=== PATIENT | male | born 1975 | race Caucasian/White ===

== ENCOUNTER 2017-12-20 08:36 | Emergency (ER) | payer BC ==
[2017-12-20 08:58] VITALS: BP 166/104
--- NOTE | 2017-12-20 09:19 | UC ---
Charbel Vega Stephanie, scribed for Mane Ohara MD on 12/20/17 at 0915 . Dental HPI - HPI Summary HPI Summary: The pt is a 42 y/o M presenting to with c/o dental pain that began 12/19/17. Symptoms include R sided jaw swelling and palpitations that began today. His pain is rated as a 5 in severity. - History of Current Complaint Chief Complaint: UCDentalProblem Stated Complaint: TOOTH ACHE Time Seen by Provider: 12/20/17 08:41 Hx Obtained From: Patient Onset/Duration: Gradual Onset, Lasting Days - 1, Still Present Severity: Mild Pain Intensity: 2 Pain Scale Used: 0-10 Numeric Aggravating Factor(s): Nothing Alleviating Factor(s): Nothing - Allergies/Home Medications Allergies/Adverse Reactions: Allergies Allergy/AdvReac Type Severity Reaction Status Date / Time No Known Allergies Allergy Verified 12/20/17 08:43 PMH/Surg Hx/FS Hx/Imm Hx Endocrine History: Diabetes, Dyslipidemia Cardiovascular History: Hypertension, Other - peripheral vascular disease Other Cardiovascular History: peripheral vascular disease Other History Of: Negative For: Anticoagulant Therapy - Surgical History Surgical History: Yes Surgery Procedure, Year, and Place: bone biopsy hip, rotator cuff repair right shoulder. JSAN 2018 REMOVAL OF CALCIFIED CYST ON RIGHT KNEE ARTERY - Family History Known Family History: Positive: Hypertension, Diabetes - Social History Occupation: Employed Part-time Lives: With Family Alcohol Use: UNKNOWN Substance Use Type: Marijuana Smoking Status (MU): Heavy Every Day Tobacco Smoker Type: Cigarettes Length of Time of Smoking/Using Tobacco: 1 1.2 OOD 30+ YEARS Household Exposure Type: Cigarettes - Immunization History Most Recent Influenza Vaccination: UNKNOWN Most Recent Tetanus Shot: within the last 5 years Most Recent Pneumonia Vaccination: never Review of Systems Constitutional: Negative Skin: Negative Eyes: Negative ENT: Dental Pain, Other - R sided jaw swelling Respiratory: Negative Cardiovascular: Palpitations Gastrointestinal: Negative Genitourinary: Negative Motor: Negative Neurovascular: Negative Musculoskeletal: Negative Neurological: Negative Psychological: Negative Is Patient Immunocompromised?: No All Other Systems Reviewed And Are Negative: Yes Physical Exam - Summary Physical Exam Summary: VITAL SIGNS: Reviewed. GENERAL: Patient is a well developed and nourished M who is lying comfortable in the stretcher. Patient is not in any acute respiratory distress. HEAD AND FACE: swelling in R side of face EYES: PERRLA, EOMI x 2. EARS: Hearing grossly intact. MOUTH: Oropharynx within normal limits. NECK: Supple, trachea is midline, no adenopathy, no JVD, no carotid bruit. CHEST: Symmetric, no tenderness at palpation LUNGS: Clear to auscultation bilaterally. No wheezing or crackles. CVS: tackycardic 139 BPM, hypertensive , S1 and S2 present, no murmurs or gallops appreciated. ABDOMEN: Soft, non-tender. Bowel sounds are normal. No abdominal abnormal pulsations. EXTREMITIES: Full ROM in all major joints, no edema, no cyanosis or clubbing. NEURO: Alert and oriented x 3. No acute neurological deficits. Speech is normal and follows commands. SKIN: Dry and warm Triage Information Reviewed: Yes Vital Signs: Initial Vital Signs Temp 98.1 F 12/20/17 08:45 Pulse 160 12/20/17 08:45 Resp 16 12/20/17 08:45 BP 188/110 12/20/17 08:45 Pulse Ox 98 12/20/17 08:45 Vital Signs Reviewed: Yes Diagnostics - EKG Cardiac Rate: Tachycardia - At 08:49 Cardiac Rhythm: Sinus: Normal - Tackycardia, without ST elevations ST Segment: Normal Dental Complaint Course/Dx - Course Course Of Treatment: The pt is a 42 y/o M presenting to with c/o dental pain that began 12/19/17. Symptoms include R sided jaw swelling and palpitations that began today. His pain is rated as a 5 in severity. Patient is here c/o dental pain for the last 2 days. At arrival it shows patient has a HR 154 -160 BPM and patient is hypertensive. Patient has no CP or SOB and denies any dizziness or feeling like he is going to pass out. Patient has PMH significant of DM, HTN, dyslipidemia NM s/p stent and a leg stent. Because of his comorbidities I will discharge the patient to the ED. I recommended ambulance but patient declined. He understands risk and benefit of leaving AMA. agrees. I discussed the case with Dr. Alexander in [facility] and he ia aware patient is going to the ED. - Differential Dx/Diagnosis Differential Diagnosis/Dx: Peridontic Disease, Peritonsillar Abcess, Tonsillitis , Other - Arrythmia, Uncontrol HTN Provider Diagnoses: Arrhythmia. Poorly controlled HTN. Dental pain Discharge - Sign-Out/Discharge Documenting (check all that apply): Discharge - Discharge Plan Condition: Stable Disposition: AGAINST MEDICAL ADVICE Patient Education Materials: Heart Palpitations (ED), Toothache (ED) Referrals: Anali Prado [Primary Care Provider] - Additional Instructions: Patient is leaving AMA to the ED. Refused ambulance - Billing Disposition and Condition Condition: STABLE Disposition: AMA The documentation as recorded by the Charbel olguin Stephanie accurately reflects the service I personally performed and the decisions made by , Mane Ohara MD.
== END 2017-12-20 09:08 | disposition left against medical advice (07) ==
LOC: UCEAST 08:36
DX: K08.89 Other specified disorders of teeth and supporting structures (principal); R00.0 Tachycardia, unspecified; I10 Essential (primary) hypertension; E11.9 Type 2 diabetes mellitus without complications; Z79.4 Long term (current) use of insulin; E78.5 Hyperlipidemia, unspecified; I73.9 Peripheral vascular disease, unspecified; F17.210 Nicotine dependence, cigarettes, uncomplicated
CPT/HCPCS: 93005; 99212; G0463

== ENCOUNTER 2017-12-20 09:27 | Emergency (ER) | payer BC ==
[2017-12-20] MEDS ORDERED: NS 0.9% 1000 ML* 1,000 ML IV SCH (09:45)
--- NOTE | 2017-12-20 10:08 | RAD ---
INDICATION: Tachycardia COMPARISON: Most recent comparison chest x-ray is dated March 21, 2015 TECHNIQUE: Single AP portable view of the chest was obtained. FINDINGS: Image quality is compromised due to the relative inferiority of a portable chest x-ray. The heart and mediastinum exhibit normal size and contour. The lungs are grossly clear. There is no evidence of a large pleural effusion. Visualized bones are normal for the patient's age. IMPRESSION: No radiographic evidence for acute cardiopulmonary abnormality on this portable chest x-ray.
[2017-12-20 10:09] LABS: ABS Basophils 0.1 10^3/ul (0-0.2); ABS Eosinophils 0.1 10^3/ul (0-0.6); ABS Monocytes 1.3 10^3/ul (0-0.8); ABS Nucleated RBC 0 10^3/ul; Eosinophil % 0.6 % (0-6); Hematocrit 50 % (42-52); Hemoglobin 17.2 g/dl (14.0-18.0); Lymphocyte % 13.9 % (25-47); Mean Corpuscular HGB Conc 35 g/dl (31-36); Mean Corpuscular Hemoglobin 29 pg (27-31); Mean Corpuscular Volume 85 fL (80-94); Mean Platelet Volume 8.6 um3 (7.4-10.4); Nucleated Red Blood Cells % 0.2; Platelet Count 219 10^3/ul (150-450); Red Blood Count 5.88 10^6/ul (4.0-5.4); Red Cell Distribution Width 14 % (10.5-15); White Blood Count 14.6 10^3/ul (3.5-10.8)
[2017-12-20 10:18] LABS: INR 0.86 (0.77-1.02)
[2017-12-20 10:27] LABS: EGFR Non-African American 113.7 (>60)
[2017-12-20] MEDS ORDERED: Metoprolol Tartrate TAB* 25 MG PO ONE (11:07)
[2017-12-20] MEDS ORDERED: Aspirin EC TAB* 325 MG PO ONE (11:08)
[2017-12-20] MEDS ORDERED: Cefepime 2 GM in Dextrose(*) 2 GM/50 ML BAG IV ONE (11:14)
[2017-12-20 12:30] VITALS: BP 144/89
--- NOTE | 2017-12-20 12:31 | ED ---
Linda Vega Emily, scribed for Cintia Herring MD on 12/20/17 at 1117 . 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 The patient rates the pain 3/10 in severity. Symptoms aggravated by nothing. Symptoms alleviated by nothing. Patient reports dental pain (upper, back, right) , palpitations, and blurred vision. Patient denies fever, chills, and dizziness. Pt reports not taking his medications for approximately one month. Pt reports a history of diabetes and AL. Pt also c/o right lower molar pain with severe caries down to gums, went to for better pain control but HR was in 140's and was sent to ED - History of Current Complaint Chief Complaint: EDDysrhythmPalp Stated Complaint: DENTAL PAIN/SWELLING-SENT F/ CC Time Seen by Provider: 12/20/17 10:56 Hx Obtained From: Patient Onset/Duration: Started Hours Ago, Still Present Timing: Constant Initial Severity: Mild Current Severity: Mild Pain Intensity: 0 Pain Scale Used: 0-10 Numeric Character: Fast Aggravating Factor(s): Nothing Alleviating Factor(s): Nothing Associated Signs and Symptoms: Positive: Other: - Positive dental pain (upper, back, right), palpitations, and blurred vision. Negative fever, chills, and dizzines - Additional Pertinent History Primary Care Physician: [id number] - Allergy/Home Medications Allergies/Adverse Reactions: Allergies Allergy/AdvReac Type Severity Reaction Status Date / Time No Known Allergies Allergy Verified 12/20/17 09:36 Home Medications: Home Medications Insulin GLARGINE(*) [Lantus(*)] 28 units SUBCUT DAILY 12/20/17 [History Confirmed 12/20/17] PMH/Surg Hx/FS Hx/Imm Hx Previously Healthy: No Endocrine/Hematology History: Reports: Hx Diabetes - type 2, Other Endocrine/ Hematological Disorders Denies: Hx Anticoagulant Therapy, Hx Thyroid Disease Cardiovascular History: Reports: Hx Hypertension Denies: Hx Pacemaker/ICD Respiratory History: Denies: Hx Asthma, Hx Chronic Obstructive Pulmonary Disease (COPD) GI History: Denies: Hx Ulcer History: Denies: Hx Renal Disease Musculoskeletal History: Reports: Other Musculoskeletal History - R SHOULDER ROTATER CUFF TEAR Neurological History: Denies: Hx Dementia, Hx Seizures Psychiatric History: Denies: Hx Substance Abuse - Surgical History Surgery Procedure, Year, and Place: bone biopsy hip, rotator cuff repair right shoulder. JSAN 2018 REMOVAL OF CALCIFIED CYST ON RIGHT KNEE ARTERY - Immunization History Date of Tetanus Vaccine: 2011 Date of Influenza Vaccine: none Infectious Disease History: No Infectious Disease History: Denies: Hx Clostridium Difficile, Hx Hepatitis, Hx Human Immunodeficiency Virus (HIV), Hx of Known/Suspected MRSA, Hx Shingles, Hx Tuberculosis, Hx Known/ Suspected VRE, Hx Known/Suspected VRSA, History Other Infectious Disease, Traveled Outside the US in Last 30 Days - Family History Known Family History: Positive: Hypertension, Diabetes - Social History Occupation: Employed Full-time Lives: Alone Alcohol Use: None Substance Use Type: Reports: Marijuana Smoking Status (MU): Heavy Every Day Tobacco Smoker Type: Cigarettes Length of Time of Smoking/Using Tobacco: 1 1.2 OOD 30+ YEARS Review of Systems Negative: Fever, Chills Positive: Blurred Vision ENT: Other - Positive dental pain Positive: Palpitations, Other - Positive elevated heart rate Neurological: Other - Negative dizziness All Other Systems Reviewed And Are Negative: Yes Physical Exam - Summary Physical Exam Summary: Appearance: Well-appearing, Well-nourished Skin: Warm Eyes: Normal ENT: Normal Dental Exam: poor dentition, edentulous. Right tooth number 1 and 3 with severe dental carries associated with R mandibular swelling and moderate tenderness. Neck: Supple, nontender, no cervical lymphadenopathy Respiratory: Clear to auscultation Cardiovascular: Regular rhythm. Normal S1, S2. Tachycardic. HR of 111 Abdomen: Soft, nontender Musculoskeletal: Normal, Strength/ROM Intact Neurological: Normal, A&Ox3 Psychiatric: Normal General: No acute distress Triage Information Reviewed: Yes Vital Signs On Initial Exam: Initial Vitals Temp Pulse Resp BP Pulse Ox 98.2 F 144 16 199/95 100 12/20/17 09:34 12/20/17 09:34 12/20/17 09:34 12/20/17 09:34 12/20/17 09:34 Vital Signs Reviewed: Yes Diagnostics - Vital Signs Vital Signs Temp Pulse Resp BP Pulse Ox 12/20/17 11:02 98 12/20/17 11:00 107 164/88 96 12/20/17 10:30 123 145/88 96 12/20/17 10:00 130 166/87 97 12/20/17 09:40 136 98 12/20/17 09:39 154/88 12/20/17 09:34 98.2 F 144 16 199/95 100 - Laboratory Lab Results: Lab Results 12/20/17 12/20/17 12/20/17 Range/Units 10:00 10:00 10:00 WBC (3.5-10.8) 10^3/ul RBC (4.0-5.4) 10^6/ul Hgb (14.0-18.0) g/dl Hct (42-52) % MCV (80-94) fL MCH (27-31) pg MCHC (31-36) g/dl RDW (10.5-15) % Plt Count (150-450) 10^3/ul MPV (7.4-10.4) um3 Neut % (Auto) (38-83) % Lymph % (Auto) (25-47) % Clare % (Auto) (0-7) % Eos % (Auto) (0-6) % Baso % (Auto) (0-2) % Absolute Neuts (auto) (1.5-7.7) 10^3/ul Absolute Lymphs (auto) (1.0-4.8) 10^3/ul Absolute Monos (auto) (0-0.8) 10^3/ul Absolute Eos (auto) (0-0.6) 10^3/ul Absolute Basos (auto) (0-0.2) 10^3/ul Absolute Nucleated RBC 10^3/ul Nucleated RBC % INR (Anticoag Therapy) 0.86 (0.77-1.02) APTT 29.9 (26.0-36.3) seconds Sodium 135 L (139-145) mmol/L Potassium 4.1 (3.5-5.0) mmol/L Chloride 101 (101-111) mmol/L Carbon Dioxide 20 L (22-32) mmol/L Anion Gap 14 H (2-11) mmol/L BUN 18 (6-24) mg/dL Creatinine 0.75 (0.67-1.17) mg/dL Est GFR ( Amer) 146.2 (>60) Est GFR (Non-Af Amer) 113.7 (>60) BUN/Creatinine Ratio 24.0 H (8-20) Glucose 329 H (70-100) mg/dL Lactic Acid (0.5-2.0) mmol/L Calcium 9.6 (8.6-10.3) mg/dL Magnesium 1.9 (1.9-2.7) mg/dL Total Bilirubin 0.70 (0.2-1.0) mg/dL AST 11 L (13-39) U/L ALT 23 (7-52) U/L Alkaline Phosphatase 119 H (34-104) U/L CK-MB (CK-2) Pending Troponin I 0.01 (<0.04) ng/mL C-Reactive Protein 30.32 H (< 5.00) mg/L B-Natriuretic Peptide 27 ( - 100) pg/mL Total Protein 7.7 (6.4-8.9) g/dL Albumin 4.6 (3.2-5.2) g/dL Globulin 3.1 (2-4) g/dL Albumin/Globulin Ratio 1.5 (1-3) Lipase 58 (11.0-82.0) U/L TSH 1.73 (0.34-5.60) mcIU/mL Acetaminophen < 15 mcg/mL 12/20/17 12/20/17 Range/Units 10:00 10:00 WBC 14.6 H (3.5-10.8) 10^3/ul RBC 5.88 H (4.0-5.4) 10^6/ul Hgb 17.2 (14.0-18.0) g/dl Hct 50 (42-52) % MCV 85 (80-94) fL MCH 29 (27-31) pg MCHC 35 (31-36) g/dl RDW 14 (10.5-15) % Plt Count 219 (150-450) 10^3/ul MPV 8.6 (7.4-10.4) um3 Neut % (Auto) 75.4 (38-83) % Lymph % (Auto) 13.9 L (25-47) % Clare % (Auto) 9.1 H (0-7) % Eos % (Auto) 0.6 (0-6) % Baso % (Auto) 1.0 (0-2) % Absolute Neuts (auto) 11.0 H (1.5-7.7) 10^3/ul Absolute Lymphs (auto) 2.0 (1.0-4.8) 10^3/ul Absolute Monos (auto) 1.3 H (0-0.8) 10^3/ul Absolute Eos (auto) 0.1 (0-0.6) 10^3/ul Absolute Basos (auto) 0.1 (0-0.2) 10^3/ul Absolute Nucleated RBC 0 10^3/ul Nucleated RBC % 0.2 INR (Anticoag Therapy) (0.77-1.02) APTT (26.0-36.3) seconds Sodium (139-145) mmol/L Potassium (3.5-5.0) mmol/L Chloride (101-111) mmol/L Carbon Dioxide (22-32) mmol/L Anion Gap (2-11) mmol/L BUN (6-24) mg/dL Creatinine (0.67-1.17) mg/dL Est GFR ( Amer) (>60) Est GFR (Non-Af Amer) (>60) BUN/Creatinine Ratio (8-20) Glucose (70-100) mg/dL Lactic Acid 1.5 (0.5-2.0) mmol/L Calcium (8.6-10.3) mg/dL Magnesium (1.9-2.7) mg/dL Total Bilirubin (0.2-1.0) mg/dL AST (13-39) U/L ALT (7-52) U/L Alkaline Phosphatase (34-104) U/L CK-MB (CK-2) Troponin I (<0.04) ng/mL C-Reactive Protein (< 5.00) mg/L B-Natriuretic Peptide ( - 100) pg/mL Total Protein (6.4-8.9) g/dL Albumin (3.2-5.2) g/dL Globulin (2-4) g/dL Albumin/Globulin Ratio (1-3) Lipase (11.0-82.0) U/L TSH (0.34-5.60) mcIU/mL Acetaminophen mcg/mL Result Diagrams: 12/20/17 10:00 12/20/17 10:00 Lab Statement: Any lab studies that have been ordered have been reviewed, and results considered in the medical decision making process. - Radiology CXR Radiology Interpretation Completed By: Radiologist - CXR reveals, per radiologist, no radiographic evidence for acute cardiopulmonary abnormality on this portable chest XR. ED physician has reviewed this radiology report. - EKG 1130 Cardiac Rate: Tachycardia EKG Rhythm: Sinus Rhythm - 104 BPM EKG Interpretation: No STT changes Re-Evaluation - Re-Evaluation First Eval Re-Evaluation Time: 12:22 Change: Unchanged Comment: Discussed plan of care with patient Disposition - Course Assessment/Plan: [facility] 14.4, suspect dental abscess, Tachycardia improved with PO Metoprolol. Advised better compliance with medication to avoid arrythmias and complications from DM. PO clindamycin as outpt - Diagnoses Provider Diagnoses: Tachycardia, Dental abscess Discharge - Sign-Out/Discharge Documenting (check all that apply): Discharge - Discharge Plan Condition: Stable Disposition: HOME Prescriptions: Clindamycin HCl 300 mg PO QID 10 Days #40 capsule Patient Education Materials: Dental Abscess (ED), Tachycardia (ED) Referrals: Anali Prado [Primary Care Provider] - - Billing Disposition and Condition Condition: STABLE Disposition: HOME The documentation as recorded by the Linda olguin Emily accurately reflects the service I personally performed and the decisions made by , Cintia Herring MD.
[2017-12-20 14:45] LABS: Urine Appearance Clear; Urine Blood Negative (Negative); Urine Color Yellow; Urine Ketones 2+ (Negative); Urine Protein 2+(100 mg/dL) (Negative); Urine Specific Gravity 1.037 (1.010-1.030); Urine Urobilinogen Negative (Negative)
== END 2017-12-20 12:37 | disposition home or self-care (01) ==
LOC: ED 09:27
DX: K04.7 Periapical abscess without sinus (principal); R00.0 Tachycardia, unspecified; E11.9 Type 2 diabetes mellitus without complications; I10 Essential (primary) hypertension
CPT/HCPCS: 36415; 71045; 80053; 80329; 81003; 81015; 82553; 83605; 83690; 83735; 83880; 84443; 84484; 85025; 85610; 85730; 86140; 87086; 93005; 96360; 96374; 99283; A9270-GY; G0480; J0692

== ENCOUNTER 2018-03-27 04:32 | Inpatient (IN) | payer BC ==
[2018-03-27] MEDS ORDERED: Morphine INJ* 10 MG/ML 1 ML CARPUJECT IV ONE (04:57)
[2018-03-27] MEDS ORDERED: Heparin DRIP 25,000 UNITS(*) 25,000 UNITS/500 ML BAG IVPB ONE (04:57)
[2018-03-27] MEDS ORDERED: NS 0.9% 1000 ML* 1,000 ML IV ONE ×2 (04:57→09:03)
[2018-03-27] MEDS ORDERED: Morphine INJ** 4 MG/ML 1 ML CARPUJECT IV PRN (04:57)
[2018-03-27] MEDS ORDERED: Nitroglycerin TAB 0.4 MG* 0.4 MG TAB SL PRN ×2 (04:57→09:03)
[2018-03-27] MEDS ORDERED: Aspirin 81 mg CHEW TAB* 81 MG TAB.CHEW PO ONE (04:57)
[2018-03-27 05:15] LABS: Hematocrit 50 % (42-52); Mean Corpuscular HGB Conc 34 g/dl (31-36); Mean Corpuscular Hemoglobin 29 pg (27-31); Mean Corpuscular Volume 85 fL (80-94); Mean Platelet Volume 8.9 um3 (7.4-10.4); Platelet Count 222 10^3/ul (150-450); Red Blood Count 5.94 10^6/ul (4.00-5.40); Red Cell Distribution Width 14 % (10.5-15); White Blood Count 17.7 10^3/ul (3.5-10.8)
[2018-03-27] MEDS ORDERED: nitroGLYCERIN DRIP* 25,000 MCG/250 ML BTL ONE ×2 (05:16→07:39)
[2018-03-27] MEDS ORDERED: Morphine INJ** 4 MG/ML 1 ML CARPUJECT IV ONE (05:16)
[2018-03-27 05:34] LABS: EGFR Non-African American 119.1 (>60)
[2018-03-27 05:40] LABS: ABS Basophils 0.1 10^3/ul (0-0.2); ABS Eosinophils 0.1 10^3/ul (0-0.6); ABS Lymphocytes 2.7 10^3/ul (1.0-4.8); ABS Monocytes 1.6 10^3/ul (0-0.8); ABS Neutrophils 13.2 10^3/ul (1.5-7.7); ABS Nucleated RBC 0 10^3/ul; Eosinophil % 0.7 % (0-6); Lymphocyte % 15.2 % (25-47); Nucleated Red Blood Cells % 0
[2018-03-27] MEDS ORDERED: nitroGLYCERIN DRIP* 25,000 MCG/250 ML BTL IV SCH (06:00)
[2018-03-27] MEDS ORDERED: Labetalol TAB* 100 MG PO ONE (06:05)
--- NOTE | 2018-03-27 06:49 | ED ---
HPI Chest Pain - HPI Summary HPI Summary: This is scribe Hunter Lunain documenting for attending Dr. Corby Walters MD. A 42 y/o male presents to ED c/o constant midsternal chest pain/pressure. Additionally c/o right chest soreness. Currently, the patient has no chest pain , but has jaw pain. 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 He felt slight funny, but he went to the bathroom and did the same thing a couple minutes later. Since 1699, the patient has been experiencing the chest pain. He initially thought it was really bad ingestion or GERD, however it never subsided. He noted that the pain has been radiating to his jaw. Pt denies any nausea or diaphoresis. PMHx of stents, DM, CAD and catheterization. SHx of smoking. He took 2 Aspirin last night around 2129, however it did not alleviate symptoms. In the ED room, the patient has a pulse of 122 BPM, O2 saturation of 98% and blood pressure of 162/101. Vp Scientific Affairs is Dr. Lacey. - History of Current Complaint Chief Complaint: EDChestPainROMI Time Seen by Provider: 03/27/18 05:04 Hx Obtained From: Patient Onset/Duration: Started Hours Ago, Still Present Timing: Constant Initial Severity: Moderate Current Severity: Moderate Pain Intensity: 5 Pain Scale Used: 0-10 Numeric Chest Pain Location: Mid Sternal, Right Anterior Chest Pain Radiates: Yes Chest Pain Radiates To:: Jaw Aggravating Factor(s): Nothing Alleviating Factor(s): Nothing Associated Signs and Symptoms: Positive: Chest Pain. Negative: Diaphoresis, Nausea - Additional Pertinent History Primary Care Physician: [id number] - Allergy/Home Medications Allergies/Adverse Reactions: Allergies Allergy/AdvReac Type Severity Reaction Status Date / Time No Known Allergies Allergy Verified 12/20/17 09:36 PMH/Surg Hx/FS Hx/Imm Hx Endocrine/Hematology History: Reports: Hx Diabetes - type 2, Other Endocrine/ Hematological Disorders Denies: Hx Anticoagulant Therapy, Hx Thyroid Disease Cardiovascular History: Reports: Hx Hypertension Denies: Hx Pacemaker/ICD Respiratory History: Denies: Hx Asthma, Hx Chronic Obstructive Pulmonary Disease (COPD) GI History: Denies: Hx Ulcer History: Denies: Hx Renal Disease Musculoskeletal History: Reports: Other Musculoskeletal History - R SHOULDER ROTATER CUFF TEAR Neurological History: Denies: Hx Dementia, Hx Seizures Psychiatric History: Denies: Hx Substance Abuse - Surgical History Surgery Procedure, Year, and Place: bone biopsy hip, rotator cuff repair right shoulder. JSAN 2018 REMOVAL OF CALCIFIED CYST ON RIGHT KNEE ARTERY - Immunization History Date of Tetanus Vaccine: 2011 Date of Influenza Vaccine: none Infectious Disease History: No Infectious Disease History: Denies: Hx Clostridium Difficile, Hx Hepatitis, Hx Human Immunodeficiency Virus (HIV), Hx of Known/Suspected MRSA, Hx Shingles, Hx Tuberculosis, Hx Known/ Suspected VRE, Hx Known/Suspected VRSA, History Other Infectious Disease, Traveled Outside the [place] in Last 30 Days - Family History Known Family History: Positive: Hypertension, Diabetes - Social History Alcohol Use: None Substance Use Type: Reports: Marijuana Smoking Status (MU): Heavy Every Day Tobacco Smoker Type: Cigarettes Length of Time of Smoking/Using Tobacco: 1 1.2 OOD 30+ YEARS Review of Systems Positive: Skin Diaphoresis. Negative: Fever Positive: Chest Pain Negative: Nausea All Other Systems Reviewed And Are Negative: Yes Physical Exam - Summary Physical Exam Summary: Appearance: Well-appearing, Well-nourished, lying in bed comfortably Skin: Warm, dry, no obvious rash Eyes: sclera anicteric, no conjunctival pallor ENT: mucous membranes moist, pharynx appears normal Neck: Supple, nontender Respiratory: Clear to auscultation, no signs of respiratory distress Cardiovascular: Normal S1, S2. No murmurs. Normal distal pulses in tibial and radial bilaterally. Abdomen: Soft, nontender, normal active bowel sounds present Musculoskeletal: Normal, Strength/ROM Intact Neurological: A&Ox3, awake and alert, mentation is normal, speech is fluent and appropriate Psychiatric: affect is normal, does not appear anxious or depressed Triage Information Reviewed: Yes Vital Signs On Initial Exam: Initial Vitals Temp Pulse Resp BP Pulse Ox 97.7 F 125 20 170/99 99 03/27/18 04:34 03/27/18 04:34 03/27/18 04:34 03/27/18 04:34 03/27/18 04:34 Vital Signs Reviewed: Yes Diagnostics - Vital Signs Vital Signs Temp Pulse Resp BP Pulse Ox 03/27/18 06:10 98 12 108/65 95 03/27/18 06:00 105 13 95 03/27/18 05:42 111 13 122/74 95 03/27/18 05:31 107 14 137/89 95 03/27/18 05:23 20 03/27/18 05:12 104 12 124/89 97 03/27/18 05:00 105 12 97 03/27/18 04:43 123 5 99 03/27/18 04:42 124 162/101 100 03/27/18 04:34 97.7 F 125 20 170/99 99 - Laboratory Lab Results: Lab Results 03/27/18 03/27/18 Range/Units 05:08 05:08 WBC 17.7 H (3.5-10.8) 10^3/ul RBC 5.94 H (4.00-5.40) 10^6/ul Hgb 17.0 (14.0-18.0) g/dl Hct 50 (42-52) % MCV 85 (80-94) fL MCH 29 (27-31) pg MCHC 34 (31-36) g/dl RDW 14 (10.5-15) % Plt Count 222 (150-450) 10^3/ul MPV 8.9 (7.4-10.4) um3 Neut % (Auto) 74.7 (38-83) % Lymph % (Auto) 15.2 L (25-47) % [place] % (Auto) 8.8 H (0-7) % Eos % (Auto) 0.7 (0-6) % Baso % (Auto) 0.6 (0-2) % Absolute Neuts (auto) 13.2 H (1.5-7.7) 10^3/ul Absolute Lymphs (auto) 2.7 (1.0-4.8) 10^3/ul Absolute Monos (auto) 1.6 H (0-0.8) 10^3/ul Absolute Eos (auto) 0.1 (0-0.6) 10^3/ul Absolute Basos (auto) 0.1 (0-0.2) 10^3/ul Absolute Nucleated RBC 0 10^3/ul Nucleated RBC % 0 Sodium 135 (135-145) mmol/L Potassium 4.0 (3.5-5.0) mmol/L Chloride 101 (101-111) mmol/L Carbon Dioxide 20 L (22-32) mmol/L Anion Gap 14 H (2-11) mmol/L BUN 16 (6-24) mg/dL Creatinine 0.72 (0.67-1.17) mg/dL Est GFR ( Amer) 144.2 (>60) Est GFR (Non-Af Amer) 119.1 (>60) BUN/Creatinine Ratio 22.2 H (8-20) Glucose 319 H (70-100) mg/dL Calcium 9.5 (8.6-10.3) mg/dL Total Bilirubin 0.50 (0.2-1.0) mg/dL AST 40 H (13-39) U/L ALT 27 (7-52) U/L Alkaline Phosphatase 119 H (34-104) U/L Troponin I 1.20 H* (<0.04) ng/mL Total Protein 7.5 (6.4-8.9) g/dL Albumin 4.4 (3.2-5.2) g/dL Globulin 3.1 (2-4) g/dL Albumin/Globulin Ratio 1.4 (1-3) Result Diagrams: 03/27/18 05:08 03/27/18 05:08 Lab Statement: Any lab studies that have been ordered have been reviewed, and results considered in the medical decision making process. - Radiology CXR Radiology Interpretation Completed By: ED Physician - No acute disease. - EKG 0550 Cardiac Rate: Tachycardia - 106 BPM EKG Rhythm: Sinus Tachycardia EKG Interpretation: HR less. ST changes unimproving. 0442 Cardiac Rate: Tachycardia - 121 BPM EKG Rhythm: Sinus Tachycardia EKG Interpretation: ST 120. St elevation III. St depression V4-V6. Chest Pain Course/Dx - Provider Notifications Discussed Care Of Patient With: Rao Monroe Time Discussed With Above Provider: 06:00 Instructed by Provider To: Other - Dr. Monroe recommends beta yeimi would be fine. Consult at [address] Soliz who accepts patient for admission. Discharge - Sign-Out/Discharge Documenting (check all that apply): Patient Departure - ADMIT - Discharge Plan Condition: Stable Disposition: ADMITTED TO [facility] Referrals: Anali Prado [Primary Care Provider] -
[2018-03-27] MEDS ORDERED: fentaNYL* 50 MCG/ML 2 ML VIAL (100 MCG VIAL) ONE (07:38)
[2018-03-27] MEDS ORDERED: Midazolam* 1 MG/ML 10 ML VIAL (10 MG) ONE (07:38)
[2018-03-27] MEDS ORDERED: Heparin(*) 1000 UNIT/ML 10 ML VIAL CATH LAB IV ONE (07:38)
[2018-03-27] MEDS ORDERED: Heparin 2 UNITS/ML IVPREMIX* 3,000 ML IV ONE (07:39)
[2018-03-27] MEDS ORDERED: Iohexol 350 (CONTRAST) 200 ML MDV IV ONE (07:39)
--- NOTE | 2018-03-27 07:50 | ED ---
Progress - Progress Note Progress Note: This is clau Gaming documenting for attending Dangelo Francois M.D. 07:35: Dr. España and Dr. Francois were at bedside of patient. Pt had been having chest pain since yesterday. There is ST elevation in one lead but EKG does note meet STEMI criteria. Dr. España will take the patient to [facility] cath lab technologist. Re-Evaluation - Re-Evaluation First Eval Re-Evaluation Time: 07:35 Comment: Dr. Francois and Dr. España were in room reviewing Pt, EKG showed ST elevation in one lead. Course/Dx - Course Course Of Treatment: Pt is a 42 y/o sign out from Dr. Walters to Dr. Francois. At 0735, Dr. Francois and Dr. España were in the room reviewing the patient. EKG showed ST elevation in one lead but did not meet STEMI criteria. Dr. España agreed to admit Pt to [facility] cath lab technologist. Pt was diagnosed with chest pain. - Diagnoses Provider Diagnoses: Chest pain - Provider Notifications Time Discussed With Above Provider: 06:00 Instructed by Provider To: Other - Dr. Monroe recommends beta yeimi would be fine. Consult at [address] Soliz who accepts patient for admission. 0735: Dr. España accepts Pt for admission to [facility] cath lab technologist. Discharge - Sign-Out/Discharge Documenting (check all that apply): Patient Departure - admit - Discharge Plan Condition: Fair Disposition: ADMITTED TO [facility] - Billing Disposition and Condition Condition: FAIR Disposition: Admitted to [facility]
[2018-03-27] MEDS ORDERED: Lidocaine 1%* 5 ML VIAL ONE (08:05)
[2018-03-27] MEDS ORDERED: VERAPAMIL 2.5 MG/ML 2 ML VIAL ** 5 mg/2 ml ONE (08:05)
[2018-03-27] MEDS ORDERED: Bivalirudin(*) 250 MG VIAL ONE (08:24)
[2018-03-27] MEDS ORDERED: Ticagrelor* 90 MG TAB PO ONE (08:28)
[2018-03-27] MEDS ORDERED: Norepinephrine VIAL* 1 MG/ML 4 ML VIAL ONE (08:43)
[2018-03-27] MEDS ORDERED: Docusate CAP* 100 MG PO PRN (09:03)
[2018-03-27] MEDS ORDERED: Acetaminophen TAB* 325 MG PO PRN (09:03)
[2018-03-27] MEDS ORDERED: Zolpidem TAB* 5 MG PO PRN (09:03)
[2018-03-27] MEDS ORDERED: Ondansetron INJ* 2 MG/ML VIAL IV PRN (09:03)
[2018-03-27] MEDS ORDERED: Atorvastatin* 80 MG TAB PO ONE (09:10)
[2018-03-27] MEDS ORDERED: Mouth Piece, Nicotine* 1 EACH CARTRIDGE INH PRN ×2 (09:51)
[2018-03-27] MEDS ORDERED: Nicotine Inhaler* 10 MG AMP INH PRN (09:51)
[2018-03-27] MEDS ORDERED: Insulin GLARGINE(*) 1 UNITS UNIT SUBCUT SCH (10:00)
[2018-03-27] MEDS ORDERED: Dextrose 50% Syringe 50 ML* 25 GM/50 ML SYRINGE IV PUSH PRN (10:27)
[2018-03-27] MEDS: Insulin LISPRO* 1 UNITS UNIT SUBCUT SCH ×4 (11:35→21:04)
--- NOTE | 2018-03-27 12:25 | CONS ---
CC: Dr. Chico Lacey INTERVENTIONAL CARDIOLOGY CONSULTATION: DATE OF CONSULT: Acute Coronary Syndrome INDICATION FOR THE CONSULT: The patient presents with chest discomfort, abnormal cardiac enzymes with somewhat reversible ST-segment elevation, inferior leads assessed for further management, question cardiac catheterization. HISTORY OF PRESENT ILLNESS: The patient is a 42-year-old gentleman with a history of coronary artery disease dating back to 2014 when he underwent stent placement to both the mid LAD and the mid circumflex. At that time, he had diffuse diabetic type of disease, but critical lesions involving those areas that were successfully treated with drug-eluting stents. He was managed afterwards by Dr. Chico Lacey and last seen by Dr. Chico Lacey in 2016. The patient did not followup with him a year later. More recently, the patient has been off his medication for a prolonged period of time. This included his anti-hyperlipidemic medication in addition to his aspirin in addition to his medication for hypertension. The patient states over the past several weeks when he was exerted himself he was starting to get chest discomfort. It was mild in nature, would go away. Last night at 7 p.m. while he was starting a lawnmower, he developed the onset of chest discomfort. He felt it severe in nature and proceeded to have it till eventually seek medical attention when he decided to go to the hospital at 3:30 in the morning. The initial EKG showed ST-segment elevation in lead III and some ST elevation in aVF with reciprocal changes in I and aVL and sluggishly upsloping ST segments in V3 through 6. He was treated with heparin IV nitroglycerin and aspirin, and repeat EKG with improvement of his symptoms showed that the T-waves now flipped in aVF and ST-segment elevation had improved , but it was still somewhat present in lead III as an isolated lead. There was improvement to the reciprocal changes as well. Eventually, his troponin came back at 1.20 and as such Cardiology was consulted. Dr. Monroe then contacted me to review the case and suggest that he thought the patient needed to go to the cardiovascular laboratory. When I saw the gentleman this morning, the patient had very mild discomfort still present, but felt it was significantly improved from before. He did not appear in any distress with no diaphoresis, nausea, vomiting or shortness of breath. He did describe earlier at its worst the chest discomfort was a heaviness but also had radiation at both sides of his jaw to his ears. That was no longer present. His cardiac risk factors include diabetes insulin requiring, hypertension, hyperlipidemia, smoking history, which he continues 1 pack per day and a positive family history. PAST MEDICAL HISTORY: As above with those risk factors. FAMILY HISTORY: Includes coronary artery disease with myocardial infarction, diabetes, and hypertension. Mother had the DE at 53 while working and hypertension as well. SOCIAL HISTORY: He continues to smoke on a daily basis. He sporadically uses marijuana. REVIEW OF SYSTEMS: Pertinent proceeding to the cardiovascular laboratory included negative history of TIA stroke. He has no history of renal insufficiency. He has no history of hematochezia, hematuria, and hematemesis. He has no contrast allergy that we are aware of. PHYSICAL EXAM: When I see him reveals blood pressure 130/70, pulse 100, respirations 16, O2 saturation is 95%. Neck was supple. No increased JVP. Carotid had fair upstroke and volume without bruits. Conjunctivae are pink. Sclerae are clear. Mouth reveals moist mucosa. Lungs revealed no accessory muscle usage. There is fair excursion. There is no active rales, rhonchi, wheezes present. Heart reveals no visible heaves. No palpable heaves or thrills. Borderline tachycardic rate noted. No significant systolic or diastolic murmur. Abdomen is obese, soft, nontender. Extremities: Without edema. Neuro: The patient is alert and oriented with normal mentation. Peripheral pulses were intact. Femoral pulse noted without bruit. Musculoskeletal: The patient moves all extremities appropriately. DIAGNOSTIC STUDIES/LAB DATA: EKG from 4:42 a.m. revealed sinus tachycardia, heart rate 121. ST-segment depression with sluggishly upsloping ST segment, still depressed at 80 milliseconds after J-point is noted at I, aVL, and V6. Lead III has a 2-mm ST-segment elevation and aVF has borderline 0.5-mm ST- segment elevation. Repeat EKG done revealed no longer ST elevation in aVF and decrease in the degree of ST-segment elevation in lead III and much less reciprocal changes with upsloping ST segments that were virtually back to baseline by 80 milliseconds after the J- point. Laboratory results revealed sodium 135, potassium 4.0, chloride 101, bicarb 20, BUN and creatinine 16.7, sugar is 319. White count 17,700, hemoglobin and hematocrit of 17 and 50 with a platelet count of 222,000. Chest x-ray report is unavailable at current time. OVERALL ASSESSMENT: Femi presents with what appears to be stuttering inferior wall myocardial infarction with symptoms improved with medical management, but clearly EKG still abnormal. At this point in time, the risks and benefits of cardiac catheterization were explained to him. We will hold off on the Brilinta at this point in time till I can look in the cardiovascular laboratory to make sure he has not developed severe triple vessel and compromise of prior stented areas given the fact that he stopped his medications. Further management will be made pending the results. He understands risks and benefits and wished to proceed. [id number]/[facility] #: [id number] CHAYA
--- NOTE | 2018-03-27 12:42 | HP ---
CC: Anali Prado NP; Dr. España; Dr. Lacey HISTORY AND PHYSICAL: DATE OF ADMISSION: 03/27/18 PRIMARY CARE PROVIDER: Anali Prado NP CHIEF COMPLAINT: Chief complaint. HISTORY OF PRESENT ILLNESS: Femi Roach is a 42-year-old male with history of diabetes; coronary artery disease, status post stent x2 in 2014; as well as peripheral vascular disease, status post right superficial femoral artery angioplasty in August 2017, who presented to the hospital complaining of severe chest pain. He stated that he felt like a bullet shot in the chest and it was radiating into his jaw. He came into the emergency department. His EKG showed subtle ST changes in the inferior leads. Dr. España, the interventionalist, saw the patient and took the patient for emergent cardiac catheterization from the emergency department. During cardiac catheterization, the patient had critically occluded RCA, which was intervened with a stent. Previously placed stents into circumflex and LAD were patent as per Dr. España. The patient's chest pain resolved after cardiac catheterization, and I am seeing the patient after cardiac catheterization in intensive care unit for initial history and physical. 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 and occasionally, he would feel epigastric pain, but he thought it was his reflux problem. He stated that the pain he had today was a pain that he never had before in his life. It was very severe. In 2014, his heart attack manifested with epigastric discomfort. The patient stated that 2 months ago, he decided to stop taking all of his medications. He stated he does not have financial problems and he has health insurance, but he just "was too lazy." He has not been checking his sugars. The patient is admitted in the intensive care unit post cardiac catheterization and Medicine team is going to be assisting with management of this patient. PAST MEDICAL HISTORY: 1. History of coronary artery disease, status post 2 stents in 2014. 2. History of peripheral vascular disease, status post angioplasty of right superficial femoral artery by Dr. Zarco in August 2017. 3. History of diabetes, insulin dependent. 4. Hypertension. 5. Hyperlipidemia. 6. Ongoing tobacco use. 7. Depression. 8. Gastroesophageal reflux disease. PAST SURGICAL HISTORY: History of rotator cuff surgery in the past. MEDICATIONS: None. The patient used to be on insulin twice a day. ALLERGIES: The patient does not tolerate METFORMIN since it causes diarrhea. FAMILY HISTORY: Mother with history of ND at the age of 50. SOCIAL HISTORY: The patient smokes a pack and a half a day and he has been doing it for almost 30 years. He denies any alcohol or drug use. He is . His surrogate decision maker is his . 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 REVIEW OF SYSTEMS: Please see history of present illness. In addition to the above mentioned, the patient states that after his right leg vascular procedure in August 2017, he has not had problems with leg pain when ambulating. He denies any pain that is elicited by exercise. He has had frequent "heartburn." He also stated that he has tenderness in his epigastric region and discomfort in the epigastric region and when he pushes on the area, it makes the pain feel better. He denies any chest pain per se apart from the current event. His exercise tolerance had been good. All the remaining 12 systems were reviewed with the patient and were otherwise negative. PHYSICAL EXAMINATION GENERAL: The patient is a very pleasant 42-year-old male who is obese. The patient is in no acute distress. Alert, awake, and oriented x3. VITAL SIGNS: Blood pressure of 117/72, heart rate of 93 and regular, respiratory rate is 13, oxygen saturation 98% on 2 L of oxygen via nasal cannula , temperature of 98.4. HEENT: Head: Atraumatic, normocephalic. Eyes: Pupils are equal, reactive to light and accommodation. Oropharynx is clear. Mucosa moist. NECK: Supple. No JVD. No bruits bilaterally. RESPIRATORY: Clear to auscultation bilaterally. CARDIOVASCULAR: Regular rate and rhythm. No murmur. ABDOMEN: Soft, nontender. Bowel sounds present in all 4 quadrants. EXTREMITIES: There is no edema. Pulses are +2 bilaterally. There is no clubbing or cyanosis. NEURO: Speech is clear. Cranial nerves II through XII are grossly intact. Motor strength is 5/5 bilaterally. SKIN: On evaluation of the skin, the patient had right radial access which is currently under compression post cardiac catheterization. No evidence of hematoma in the right wrist region. PSYCHIATRIC: Alert and oriented x3 with no evidence of anxiety or depression. DIAGNOSTIC STUDIES/LAB DATA: Laboratory data showed white blood cell count of 17.7, hemoglobin of 17.0, hematocrit of 50, and platelets of 222. Sodium of 135, potassium 4.0, chloride 101, carbon dioxide 20, BUN 16, creatinine 0.72. Liver function tests show alkaline phosphatase of 119, ALT of 27, AST of 40. Troponin of 1.2 initially, the second troponin is 1.58. The patient's initial EKG showed ST elevation in lead III, approximately 2 mm and 1- mm ST elevation in lead aVF. Subsequent EKGs showed improvement of those segment elevation. Portable chest x-ray shows mild vascular congestion. Those were read by myself prior to the official radiologist's report. ASSESSMENT AND PLAN: 1. The patient had acute coronary syndrome that was intervened. The patient is status post right coronary artery stenting by Dr. España. He is currently on aspirin and Brilinta, which is going to be continued. He is going to be continued to be evaluated and monitored in the intensive care unit for at least initial 24 hours. Transthoracic echocardiogram was already ordered by the cardiology services and is going to be obtained. The patient's troponins are going to be followed. 2. In regards to the patient's diabetes, the patient's sugars had been in 300 range, probably for quite some time. Obtain hemoglobin A1C. I will start the patient on insulin Lantus, which he used to take at 28 units daily. I will also place the patient on insulin sliding scale. The patient stated that he used metformin in the past, but it caused diarrhea and he is not willing to take it anymore. He used Trulicity in the past, but the injections hurt and he is not willing to take it either. 3. In regards to the patient's hyperlipidemia, the patient's atorvastatin was restarted. 4. In regards to the patient's hypertension, he used to be on Toprol-XL at 100 mg daily, which is going to be restarted. Today, he received 100 mg of labetalol per cardiology service. 5. For his smoking, smoking cessation was consulted to this patient during current visit for approximately 5 minutes. Nicotine inhaler is going to be provided for withdrawal symptoms. 6. For DVT prophylaxis, the patient is at low risk and ambulation is going to be encouraged. 7. The patient's code status is full and his surrogate is his . TIME SPENT: Approximately 65 minutes was spent on admission of this patient, more than half of that time was spent [id number] with the patient during the interview and physical exam. [id number]/[facility] #: [id number] CHAYA
--- NOTE | 2018-03-27 13:14 | RAD ---
Indication: Chest pain. Hypertension. Comparison: December 20, 2017 Technique: Upright AP 0547 hours Report: Clear lungs and pleural spaces. Negative for pneumothorax. The heart, pulmonary vasculature, and mediastinal contours are unremarkable. Unremarkable osseous structures and soft tissue contours. IMPRESSION: #. No evidence for acute intrathoracic disease. R0
[2018-03-27] MEDS ORDERED: Perflutren Lipid Microsphere* 3 ML VIAL ONE (16:04)
[2018-03-27] MEDS ORDERED: Atorvastatin* 80 MG TAB PO SCH (17:00)
[2018-03-27] MEDS: Ticagrelor* 90 MG TAB PO SCH (21:04)
[2018-03-27] MEDS: Atorvastatin* 80 MG TAB PO SCH (21:04)
[2018-03-28 06:27] LABS: ABS Basophils 0.1 10^3/ul (0-0.2); ABS Eosinophils 0.1 10^3/ul (0-0.6); ABS Monocytes 1.5 10^3/ul (0-0.8); ABS Neutrophils 9.2 10^3/ul (1.5-7.7); ABS Nucleated RBC 0 10^3/ul; Eosinophil % 0.8 % (0-6); Hematocrit 40 % (42-52); Hemoglobin 13.4 g/dl (14.0-18.0); Lymphocyte % 21.6 % (25-47); Mean Corpuscular HGB Conc 34 g/dl (31-36); Mean Corpuscular Hemoglobin 29 pg (27-31); Mean Corpuscular Volume 85 fL (80-94); Mean Platelet Volume 8.8 um3 (7.4-10.4); Nucleated Red Blood Cells % 0; Platelet Count 188 10^3/ul (150-450); Red Blood Count 4.66 10^6/ul (4.00-5.40); Red Cell Distribution Width 14 % (10.5-15); White Blood Count 13.9 10^3/ul (3.5-10.8)
[2018-03-28 06:46] LABS: EGFR Non-African American 125.1 (>60)
[2018-03-28] MEDS ORDERED: NS 0.9% 1000 ML* 1,000 ML IV SCH (07:45)
[2018-03-28] MEDS: Aspirin 81 mg CHEW TAB* 81 MG TAB.CHEW PO SCH (08:28)
[2018-03-28] MEDS: Ticagrelor* 90 MG TAB PO SCH ×2 (08:28→20:57)
[2018-03-28] MEDS: Omeprazole CAP* 20 MG PO SCH ×2 (08:28→08:46)
--- NOTE | 2018-03-28 08:42 | PN ---
Subjective Date of Service: 03/28/18 Interval History: Pt has no complaints. Feels well, denies SOB/CP SBP down not 80 when asleep last night Objective Active Medications: Acetaminophen (Tylenol Tab*) 650 mg PO Q4H PRN PRN Reason: HEADACHE/PAIN Aspirin (Aspirin 81 Mg Chew Tab*) 81 mg PO DAILY [facility] Last Admin: 03/28/18 08:28 Dose: 81 mg Atorvastatin Calcium (Lipitor*) 80 mg PO 2100 [facility] Last Admin: 03/27/18 21:04 Dose: 80 mg Device (Nicotine Mouth Piece*) 1 each INH .USE WITH NICOTROL PRN PRN Reason: CRAVING Dextrose (D50w Syringe 50 Ml*) 12.5 gm IV PUSH .FOR FS < 60 - SS PRN PRN Reason: FS < 60 Docusate Sodium (Colace Cap*) 100 mg PO DAILY PRN PRN Reason: CONSTIPATION Sodium Chloride (Ns 0.9% 1000 Ml*) 1,000 mls @ 100 mls/hr IV PER RATE [facility] Stop: 03/28/18 17:44 Last Admin: 03/28/18 08:32 Dose: 100 mls/hr Insulin Glargine (Lantus(*)) 35 units SUBCUT DAILY [facility] Insulin Human Lispro (Humalog*) 0 units SUBCUT ACHS [facility]; Protocol Last Admin: 03/27/18 21:04 Dose: 6 unit Nicotine (Nicotine Inhaler*) 10 mg INH Q2H PRN PRN Reason: CRAVING Nitroglycerin (Nitroglycerin Tab 0.4 Mg*) 0.4 mg SL Q5M PRN PRN Reason: ANGINA Omeprazole (Prilosec Cap*) 20 mg PO DAILY [facility] Last Admin: 03/28/18 08:28 Dose: 20 mg Ondansetron HCl (Zofran Inj*) 4 mg IV Q4H PRN PRN Reason: NAUSEA Ticagrelor (Brilinta*) 90 mg PO BID [facility] Last Admin: 03/28/18 08:28 Dose: 90 mg Zolpidem Tartrate (Ambien Tab*) 5 mg PO BEDTIME PRN PRN Reason: INSOMNIA Vital Signs - 8 hr 03/28/18 03/28/18 03/28/18 01:00 02:00 03:00 Temperature Pulse Rate 73 66 73 Respiratory 16 16 20 Rate Blood Pressure 84/55 88/60 99/63 (mmHg) O2 Sat by Pulse 97 96 97 Oximetry 03/28/18 03/28/18 03/28/18 03:19 04:00 05:00 Temperature 97.5 F Pulse Rate 74 76 Respiratory 15 15 Rate Blood Pressure 90/63 86/54 (mmHg) O2 Sat by Pulse 96 97 Oximetry 03/28/18 03/28/18 06:00 08:00 Temperature 98.4 F Pulse Rate 71 Respiratory 14 Rate Blood Pressure 99/69 (mmHg) O2 Sat by Pulse 98 Oximetry Oxygen Devices in Use Now: None Appearance: 42 yo M in nAD, aAOx3 Eyes: No Scleral Icterus, PERRLA Ears/Nose/Mouth/Throat: NL Teeth, Lips, Gums, Mucous Membranes Moist Neck: NL Appearance and Movements; NL JVP, Trachea Midline Respiratory: Symmetrical Chest Expansion and Respiratory Effort, Clear to Auscultation Cardiovascular: NL Sounds; No Murmurs; No JVD, RRR Abdominal: NL Sounds; No Tenderness; No Distention Lymphatic: No Cervical Adenopathy Extremities: No Edema, No Clubbing, Cyanosis Skin: No Rash or Ulcers, No Nodules or Sclerosis, - - R radial access without hematoma, good rafial pulses noted b/l Neurological: Alert and Oriented x 3, NL Muscle Strength and Tone Result Diagrams: 03/28/18 05:48 03/28/18 05:48 Additional Lab and Data: Lab Results 03/27/18 03/27/18 Range/Units 05:08 05:08 WBC 17.7 H (3.5-10.8) 10^3/ul RBC 5.94 H (4.00-5.40) 10^6/ul Hgb 17.0 (14.0-18.0) g/dl Hct 50 (42-52) % MCV 85 (80-94) fL MCH 29 (27-31) pg MCHC 34 (31-36) g/dl RDW 14 (10.5-15) % Plt Count 222 (150-450) 10^3/ul MPV 8.9 (7.4-10.4) um3 Neut % (Auto) 74.7 (38-83) % Lymph % (Auto) 15.2 L (25-47) % Thomas % (Auto) 8.8 H (0-7) % Eos % (Auto) 0.7 (0-6) % Baso % (Auto) 0.6 (0-2) % Absolute Neuts (auto) 13.2 H (1.5-7.7) 10^3/ul Absolute Lymphs (auto) 2.7 (1.0-4.8) 10^3/ul Absolute Monos (auto) 1.6 H (0-0.8) 10^3/ul Absolute Eos (auto) 0.1 (0-0.6) 10^3/ul Absolute Basos (auto) 0.1 (0-0.2) 10^3/ul Absolute Nucleated RBC 0 10^3/ul Nucleated RBC % 0 Sodium 135 (135-145) mmol/L Potassium 4.0 (3.5-5.0) mmol/L Chloride 101 (101-111) mmol/L Carbon Dioxide 20 L (22-32) mmol/L Anion Gap 14 H (2-11) mmol/L BUN 16 (6-24) mg/dL Creatinine 0.72 (0.67-1.17) mg/dL Est GFR ( Amer) 144.2 (>60) Est GFR (Non-Af Amer) 119.1 (>60) BUN/Creatinine Ratio 22.2 H (8-20) Glucose 319 H (70-100) mg/dL Calcium 9.5 (8.6-10.3) mg/dL Total Bilirubin 0.50 (0.2-1.0) mg/dL AST 40 H (13-39) U/L ALT 27 (7-52) U/L Alkaline Phosphatase 119 H (34-104) U/L Troponin I 1.20 H* (<0.04) ng/mL Total Protein 7.5 (6.4-8.9) g/dL Albumin 4.4 (3.2-5.2) g/dL Globulin 3.1 (2-4) g/dL Albumin/Globulin Ratio 1.4 (1-3) Microbiology and Other Data: Microbiology 03/27/18 10:10 Nasal Screen MRSA (PCR) - Final Nasal Mrsa Not Detected Assess/Plan/Problems-Billing Assessment: 42 yo M with h/o DM, CAD, HTN, smoking, PAD stopped his med 2 months prior and presented to ED with ACS - Patient Problems (1) ACS (acute coronary syndrome) Comment: STEMI s/p stent placement in RCA cont ASA, Brilinta BB held due to low SBP at night, d/w Dr. Taco Hickey pending (2) Hyperlipidemia LDL goal <100 Comment: continue on high dose statin therapy. (3) Leukocytosis Comment: The patient has had an elevated WBC count dating back 3-4yrs. Likely needs hematology evaluation as outpatient (4) Tobacco abuse Comment: smoking cessation counseling x 5 min today (5) Type II diabetes mellitus Comment: The patient's A1c is pending. titrating up lantus. (6) DVT prophylaxis Comment: ambulation Status and Disposition: inpatient
[2018-03-28] MEDS: Insulin LISPRO* 1 UNITS UNIT SUBCUT SCH ×4 (08:43→20:57)
[2018-03-28] MEDS ORDERED: Metoprolol Succinate XL TAB* 100 MG PO SCH (09:00)
[2018-03-28] MEDS ORDERED: Insulin GLARGINE(*) 1 UNITS UNIT SUBCUT SCH (09:00)
[2018-03-28] MEDS: Atorvastatin* 80 MG TAB PO SCH (20:57)
[2018-03-29 06:01] LABS: ABS Basophils 0 10^3/ul (0-0.2); ABS Eosinophils 0.1 10^3/ul (0-0.6); ABS Lymphocytes 2.6 10^3/ul (1.0-4.8); ABS Monocytes 1.2 10^3/ul (0-0.8); ABS Neutrophils 7.7 10^3/ul (1.5-7.7); ABS Nucleated RBC 0 10^3/ul; Hematocrit 42 % (42-52); Hemoglobin 14.2 g/dl (14.0-18.0); Lymphocyte % 22.4 % (25-47); Mean Corpuscular HGB Conc 34 g/dl (31-36); Mean Corpuscular Hemoglobin 29 pg (27-31); Mean Corpuscular Volume 85 fL (80-94); Nucleated Red Blood Cells % 0.1; Platelet Count 187 10^3/ul (150-450); Red Blood Count 4.93 10^6/ul (4.00-5.40); Red Cell Distribution Width 14 % (10.5-15); White Blood Count 11.7 10^3/ul (3.5-10.8)
[2018-03-29 06:23] LABS: EGFR Non-African American 125.1 (>60)
[2018-03-29] MEDS ORDERED: Metoprolol Succinate XL TAB* 25 MG PO SCH (07:00)
[2018-03-29] MEDS: Insulin LISPRO* 1 UNITS UNIT SUBCUT SCH ×4 (08:22→20:12)
[2018-03-29] MEDS: Ticagrelor* 90 MG TAB PO SCH ×2 (08:22→20:06)
[2018-03-29] MEDS: Aspirin 81 mg CHEW TAB* 81 MG TAB.CHEW PO SCH (08:22)
[2018-03-29] MEDS: Insulin GLARGINE(*) 1 UNITS UNIT SUBCUT SCH (08:22)
[2018-03-29] MEDS: Omeprazole CAP* 20 MG PO SCH (08:22)
--- NOTE | 2018-03-29 08:47 | CATH ---
CC: Anali Prado NP, [facility] in [place], [place], Dr. Chico Lacey MD CARDIAC CATHETERIZATION AND INTERVENTIONAL REPORT: DATE OF PROCEDURE: 03/27/2018 INDICATION FOR THE PROCEDURE: The patient presents with stuttering inferior wall myocardial infarction. PROCEDURE: Coronary arteriography, left heart catheterization, left ventriculography, thrombectomy, and primary stenting of the proximal right coronary artery utilizing a 2.5 x 20 mm long Synergy drug-eluting stent dilated to 2.65 to 2.7 mm. The patient was interviewed and examined in the emergency room where the risks and benefits were explained; he understood them and wished to proceed. APPROACH: Right radial artery. EQUIPMENT UTILIZED: 1. The right radial artery sheath: 6-Chadian Glidesheath. 2. Diagnostic coronary catheters: 5-Chadian TIG4 curve catheter. 3. Guide catheter: A 6-Chadian ART4 guide catheter with side holes. 4. Interventional wire was an [employer] All Star 190 length guidewire. 5. Extraction thrombectomy catheter: A Pronto V4 6-Chadian catheter. 6. Drug-eluting stent: It was a Synergy 2.5 x 20 mm long stent, dilated to 15 rakesh. 7. Left heart catheter: A 5-Chadian PIG Performa radial catheter. MEDICATIONS GIVEN DURING THE CASE: Precath Lab: 1. Aspirin 324. 2. Heparin 4000 units. MEDICATIONS GIVEN IN THE WOOD GOUGER: Included: 1. Versed 1 mg. 2. IV nitroglycerin 10 mcg/minute. 3. Levophed bolus 32 mcg intravenously. 4. Angiomax bolus and Angiomax drip. 5. Brilinta 180 mg. DESCRIPTION OF PROCEDURE: The patient was interviewed and examined in the emergency room where the risks, benefits were explained. He understood them and wished to proceed. The patient was brought to the cardiovascular laboratory, where a formal time- out was performed. The patient was prepped and draped in a sterile fashion. Under the ultrasound-guidance, the right radial artery was cannulated and the guide catheter was placed followed by the radial artery cocktail including 300 mcg of intraarterial nitroglycerin and 3 mg of verapamil intraarterially. ACT was drawn as well. Coronary arteriography was performed. Following this, the decision was made to intervene in the totally occluded right coronary artery. The ACT was found to be subtherapeutic, and as such, an Angiomax bolus was given and Angiomax drip was started. Guiding views were obtained and the All Star wire was advanced and able to cross the totally occluded area in the proximal right coronary artery. Thrombectomy was then performed utilizing Pronto catheter followed by stent delivery expanded to obtain 2.65 to 2.7 mm. Following this, the artery was assessed with the wire in place and wire removed. Left heart catheterization was then performed utilizing the radial pigtail catheter, advanced to the ascending aorta where central aortic pressure was recorded. The catheter was then passed across the aortic valve into the left ventricle where the left ventricular pressure was recorded. Left ventriculography was performed utilizing a total of 24 cc of Omnipaque dye at a rate of 12 cc per second. The catheter was then pulled back across the aortic valve to recheck gradient. At the end of the case, the catheter and sheath were removed and hemostasis was obtained with a Vasc Band. The reverse Barbeau was a B. The total contrast used was 150 cc of Omnipaque dye. The radiation exposure included 11.3 minutes of fluoro time. The air kerma radiation was 1894 milligray. The DAP radiation was 11,869 microgray per meter squared. RESULTS: HEMODYNAMIC DATA: Left heart catheterization - central aortic pressure was recorded at 93/60 with a mean of 76, left ventricular pressure 102, the left ventricular end- diastolic pressure of 13. LEFT VENTRICULOGRAPHY: Performed in the BLAIR projection revealed several ectopic beats. On a post PVC beat, there appeared to be relatively well-preserved contractility to all regions of the left ventricle except for the mid to distal inferior wall, which showed a focal small area of [id number] hypokinesis. Overall ejection fraction post PVC was estimated at 50% to 55%. There was no significant mitral regurgitation. CORONARY ARTERIOGRAPHY: A. Right coronary artery - totally occluded at the beginning of the case. On reconstitution of the vessel, the right coronary artery was seen to have significant diffuse disease. There was a mid long segment of 55%, followed by very small caliber distal vessels including the PDA and posterior left ventricular branches. The distal most vessels appeared to clearly be small in caliber, less than 2 mm, for the PDA and even less for the posterior left ventricular branches. The PDA had moderate diffuse disease seen throughout the proximal portion of at least 45 to 50%. In general, these vessels appeared to be diffusely diseased in nature suggesting diabetic coronary artery disease. Collaterals to the right coronary artery could be seen faintly reconstituting the right coronary artery PDA and posterior left ventricular branch. B.Left coronary artery. 1. Left main: There was calcification seen in the ascending aorta just above the left main. The left main itself had mild distal disease of 25 to 30% . 2. The left anterior descending artery was noted to have a prior proximal stent. That stent was found to be widely patent. The diagonal branch that originated from the middle of that stent had a 55 to 60% narrowing in it. There was ALICIA 3 flow, that was a small caliber diagonal branch. The high first diagonal branch was posteriorly directed in somewhat small caliber, but no significant disease. There was immediate second thinner diagonal branch that had diffuse disease in its proximal segment, extremely small in caliber, and not by any means considered to be a vessel that could be treated with intervention. 3: Circumflex artery - a nondominant vessel supplying a very thin first obtuse marginal branch with a moderate size second obtuse marginal branch. The second obtuse marginal branch itself had a lesion that appeared to be significant at 75 to 80%. The caliber of that vessel was barely at 1.7 mm in diameter. That branch bifurcated into superior and inferior branches. The proximal portion of the circumflex was noted to have a stent that had mild 25 to 30% in-stent restenosis seen within it. Distal to this, the vessel had very diffuse disease with areas of 55 to 60% narrowing before a large bifurcating low lying posterior left ventricular branch. The superior branch of that vessel again bifurcated into a very thin superior and a larger inferior caliber branch. There was moderate disease seen in these vessels, but again the caliber of them was somewhat small in their mid to distal segments. At the bifurcation area, there was narrowing of 50% in each branch. INTERVENTION INTO PROXIMAL RIGHT CORONARY ARTERY: Successful reconstitution of 100% occluded proximal right coronary with thrombectomy and primary stenting with a 2.5 x 20 mg long Synergy drug-eluting stent, dilated up to 2.65 to 2.7 mm with ALICIA 3 flow and no dissection seen and less than 5% narrowing to that area. OVERALL ASSESSMENT: Successful intervention into totally occluded right coronary artery with significant diffuse disease particularly in a somewhat small caliber bifurcating obtuse marginal branch as described above. In general, the distal vessels appear to be thin in nature, and given his diabetes, clearly he needs aggressive diabetic risk management. Interestingly, the areas of prior stent placement have shown no significant in-stent restenosis. He has a compromised acute marginal branch of the right coronary artery, which may just have spasm present. Ongoing aggressive risk factor management with dual-antiplatelet therapy, at this point, for at least 30 months if not longer, should be pursued. Given the small caliber of these vessels, unfortunately, his overall long-term prognosis given his young age is quite guarded. Smoking cessation in addition to tight diabetic control and tight cholesterol control are mandatory. Of note, he himself admits that he had stopped all of his medication, but seems to feel at the end of the case discussing with him that he realizes the critical nature of this at this point in time. Only time will say whether or not he is aggressive in his changes that are needed. [id number]/CPS #: [id number] CHAYA
--- NOTE | 2018-03-29 14:29 | PN ---
Subjective Date of Service: 03/29/18 Interval History: Pt was "a little SOB last night"-that resolved. Had been ambulating without any CP or SOB Objective Active Medications: Acetaminophen (Tylenol Tab*) 650 mg PO Q4H PRN PRN Reason: HEADACHE/PAIN Aspirin (Aspirin 81 Mg Chew Tab*) 81 mg PO DAILY [facility] Last Admin: 03/29/18 08:22 Dose: 81 mg Atorvastatin Calcium (Lipitor*) 80 mg PO 2100 [facility] Last Admin: 03/28/18 20:57 Dose: 80 mg Device (Nicotine Mouth Piece*) 1 each INH .USE WITH NICOTROL PRN PRN Reason: CRAVING Dextrose (D50w Syringe 50 Ml*) 12.5 gm IV PUSH .FOR FS < 60 - SS PRN PRN Reason: FS < 60 Docusate Sodium (Colace Cap*) 100 mg PO DAILY PRN PRN Reason: CONSTIPATION Insulin Glargine (Lantus(*)) 45 units SUBCUT DAILY [facility] Last Admin: 03/29/18 08:22 Dose: 45 unit Insulin Human Lispro (Humalog*) 0 units SUBCUT ACHS [facility]; Protocol Last Admin: 03/29/18 12:59 Dose: 4 unit Metoprolol Succinate (Toprol Xl Tab*) 12.5 mg PO 0700 [facility] Last Admin: 03/29/18 08:22 Dose: 12.5 mg Metoprolol Tartrate (Lopressor Tab*) 12.5 mg PO ONCE ONE Stop: 03/29/18 19:01 Nicotine (Nicotine Inhaler*) 10 mg INH Q2H PRN PRN Reason: CRAVING Nitroglycerin (Nitroglycerin Tab 0.4 Mg*) 0.4 mg SL Q5M PRN PRN Reason: ANGINA Omeprazole (Prilosec Cap*) 20 mg PO DAILY [facility] Last Admin: 03/29/18 08:22 Dose: 20 mg Ondansetron HCl (Zofran Inj*) 4 mg IV Q4H PRN PRN Reason: NAUSEA Ticagrelor (Brilinta*) 90 mg PO BID [facility] Last Admin: 03/29/18 08:22 Dose: 90 mg Zolpidem Tartrate (Ambien Tab*) 5 mg PO BEDTIME PRN PRN Reason: INSOMNIA Vital Signs - 8 hr 03/29/18 03/29/18 07:37 08:00 Temperature 98.4 F Pulse Rate 95 Respiratory 16 16 Rate Blood Pressure 126/89 (mmHg) O2 Sat by Pulse 99 Oximetry Oxygen Devices in Use Now: None Appearance: 42 yo M in NAD, AAOx3 Eyes: No Scleral Icterus, PERRLA Ears/Nose/Mouth/Throat: NL Teeth, Lips, Gums, Mucous Membranes Moist Neck: NL Appearance and Movements; NL JVP, Trachea Midline Respiratory: Symmetrical Chest Expansion and Respiratory Effort, Clear to Auscultation Cardiovascular: NL Sounds; No Murmurs; No JVD, RRR Abdominal: NL Sounds; No Tenderness; No Distention Lymphatic: No Cervical Adenopathy Extremities: No Edema, No Clubbing, Cyanosis Skin: No Rash or Ulcers, No Nodules or Sclerosis Neurological: Alert and Oriented x 3, NL Muscle Strength and Tone Result Diagrams: 03/29/18 05:29 03/29/18 05:29 Additional Lab and Data: Lab Results 03/27/18 03/27/18 Range/Units 05:08 05:08 WBC 17.7 H (3.5-10.8) 10^3/ul RBC 5.94 H (4.00-5.40) 10^6/ul Hgb 17.0 (14.0-18.0) g/dl Hct 50 (42-52) % MCV 85 (80-94) fL MCH 29 (27-31) pg MCHC 34 (31-36) g/dl RDW 14 (10.5-15) % Plt Count 222 (150-450) 10^3/ul MPV 8.9 (7.4-10.4) um3 Neut % (Auto) 74.7 (38-83) % Lymph % (Auto) 15.2 L (25-47) % Galax % (Auto) 8.8 H (0-7) % Eos % (Auto) 0.7 (0-6) % Baso % (Auto) 0.6 (0-2) % Absolute Neuts (auto) 13.2 H (1.5-7.7) 10^3/ul Absolute Lymphs (auto) 2.7 (1.0-4.8) 10^3/ul Absolute Monos (auto) 1.6 H (0-0.8) 10^3/ul Absolute Eos (auto) 0.1 (0-0.6) 10^3/ul Absolute Basos (auto) 0.1 (0-0.2) 10^3/ul Absolute Nucleated RBC 0 10^3/ul Nucleated RBC % 0 Sodium 135 (135-145) mmol/L Potassium 4.0 (3.5-5.0) mmol/L Chloride 101 (101-111) mmol/L Carbon Dioxide 20 L (22-32) mmol/L Anion Gap 14 H (2-11) mmol/L BUN 16 (6-24) mg/dL Creatinine 0.72 (0.67-1.17) mg/dL Est GFR ( Amer) 144.2 (>60) Est GFR (Non-Af Amer) 119.1 (>60) BUN/Creatinine Ratio 22.2 H (8-20) Glucose 319 H (70-100) mg/dL Calcium 9.5 (8.6-10.3) mg/dL Total Bilirubin 0.50 (0.2-1.0) mg/dL AST 40 H (13-39) U/L ALT 27 (7-52) U/L Alkaline Phosphatase 119 H (34-104) U/L Troponin I 1.20 H* (<0.04) ng/mL Total Protein 7.5 (6.4-8.9) g/dL Albumin 4.4 (3.2-5.2) g/dL Globulin 3.1 (2-4) g/dL Albumin/Globulin Ratio 1.4 (1-3) Microbiology and Other Data: Microbiology 03/27/18 10:10 Nasal Screen MRSA (PCR) - Final Nasal Mrsa Not Detected Assess/Plan/Problems-Billing Assessment: 42 yo M with h/o DM, CAD, HTN, smoking, PAD stopped his med 2 months prior and presented to ED with ACS - Patient Problems (1) ACS (acute coronary syndrome) Comment: STEMI s/p stent placement in RCA cont ASA, Brilinta BB restarted , cont to titrate and monitor BP Echo shows inferior wall motion abn, EF 45% (2) Hyperlipidemia LDL goal <100 Comment: continue on high dose statin therapy. (3) Leukocytosis Comment: The patient has had an elevated WBC count dating back 3-4yrs. Likely needs hematology evaluation as outpatient (4) Tobacco abuse Comment: cont nicotine gum prn (5) Type II diabetes mellitus Comment: The patient's A1c is 12.5. titrating up lantus. (6) DVT prophylaxis Comment: ambulation Status and Disposition: inpatient
[2018-03-29] MEDS ORDERED: Metoprolol Tartrate TAB* 25 MG PO ONE (19:00)
[2018-03-29] MEDS: Atorvastatin* 80 MG TAB PO SCH (20:06)
[2018-03-30 07:57] VITALS: BP 121/80
[2018-03-30] MEDS ORDERED: Metoprolol Succinate XL TAB* 25 MG PO SCH (09:00)
[2018-03-30] MEDS: Insulin LISPRO* 1 UNITS UNIT SUBCUT SCH (09:00)
[2018-03-30] MEDS: Aspirin 81 mg CHEW TAB* 81 MG TAB.CHEW PO SCH (09:01)
[2018-03-30] MEDS: Omeprazole CAP* 20 MG PO SCH (09:01)
[2018-03-30] MEDS: Ticagrelor* 90 MG TAB PO SCH (09:01)
[2018-03-30] MEDS: Insulin GLARGINE(*) 1 UNITS UNIT SUBCUT SCH (09:01)
--- NOTE | 2018-03-30 21:46 | DS ---
CC: Dr. España; Dr. Lacey; Dr. Lopez; Anali Prado NP * DISCHARGE SUMMARY: DATE OF ADMISSION: 03/27/18 DATE OF DISCHARGE: 03/30/18 PRIMARY CARE PROVIDER: Anali Prado NP DISCHARGE DIAGNOSIS: Acute coronary syndrome, status post cardiac catheterization and stent placement into the right coronary artery by Dr. España on 03/27/18. SECONDARY DIAGNOSES: 1. History of coronary artery disease, status post 2 stents in 2014. 2. History of peripheral vascular disease, status post angioplasty of the right superficial femoral artery by Dr. Zarco in August 2017. 3. History of insulin-dependent diabetes. 4. Hypertension. 5. Hyperlipidemia. 6. Ongoing tobacco use. MEDICATIONS AT DISCHARGE: Include: 1. Aspirin 81 mg daily. 2. Brilinta 90 mg b.i.d. 3. Toprol XL 25 mg daily. 4. Insulin glargine 55 units daily. 5. Lipitor 80 mg daily. 6. Protonix 80 mg daily. The patient is advised to check his sugars twice a day, and if his sugars continue to be consistently above 200, to increase his insulin Lantus by 5 units on a daily basis. At discharge, the patient is going to see Dr. Lacey on 04/07/18 at 2:15 p.m. The patient was also referred to [facility] for [facility] in regards to his diabetic management and cardiac rehab. The patient is also asked to see Anali Prado NP, for primary care in 4 to 7 days after discharge. Specific post cardiac cath discharge instructions were included in the patient' s discharge documentation. DIET AT DISCHARGE: Diabetic and cardiac. LABORATORY DATA: On 03/27/18, sodium of 140, potassium 3.7, chloride 107, carbon dioxide 25, BUN 13, creatinine 0.69. On 03/27/18, white blood cell count 11.7, hemoglobin of 14.2, hematocrit of 42, and platelets of 187. The patient's hemoglobin A1c was 12.5. The patient's echocardiogram was obtained on 03/28/18 after the cath and showed EF of 45% to 50% with moderate to severe hypokinesis of the low posterolateral wall with mild to moderate hypokinesis of the inferior wall with trace to moderate mitral valve regurgitation and trace tricuspid regurgitation. CONSULTS DURING THE HOSPITAL STAY: Included Dr. España from Cardiology. PROCEDURES: Cardiac catheterization performed on 03/27/[address] España with "overall assessment, successful intervention in totally occluded right coronary artery with significant diffuse disease, particularly in a somewhat small caliber bifurcating obtuse marginal branch as described above. In general, the distal vessel appeared to be thin in nature, and given his diabetes, clearly he needs aggressive diabetic management. Interestingly, the areas of prior stent placement have shown no significant in-stent restenosis. He has compromised acute marginal branch of the right coronary artery, which might just have spasm present. Ongoing aggressive risk factor management with dual antiplatelet therapy at this point for at least 30 months no longer should be pursued. Given the small caliber of the vessels, unfortunately his overall long-term prognosis given his young age is quite guarded. Smoking cessation in addition to tight diabetic control and tight cholesterol control are mandatory. Of note , he himself admits that he had stopped all of his medications, but seems to feel at the end of the case discussing with him that he realizes the critical nature of this at this point in time. Only time will say whether or not he is aggressive in the changes that are needed." HOSPITALIZATION COURSE: Femi Roach is a 42-year-old male, who has history of 2 stents in 2015 and diabetes and hypertension, who presented to the hospital with acute coronary syndrome. He had ST elevations in inferior leads in leads II and aVF and was taken to the geophysical laboratory chief. The RCA was intervened by Dr. España. After stenting, the patient was comfortable and experienced no further chest pain. During his hospital stay, the patient stated that he stopped taking all of his medications approximately 2 months prior. His medications were reinstituted. The patient stated that he was on Trulicity, but it caused him to have pain when on injections and he did not want to restart taking it. Metformin caused him to have frequent bowel movements. At this point, we started the patient on insulin Lantus and titrated him up. Despite that, at discharge, the patient's sugars are still in the 200 range. On the day of discharge, the patient's Lantus was at 45 units. The patient is to take 55 units starting at home and then increase it by 5 units if his sugars continue to be elevated as mentioned above. His follow up appointments were recommended as above. PHYSICAL EXAM AT THE TIME OF DISCHARGE: Blood pressure 121/80, heart rate of 85 and regular, respiratory rate 16, oxygen saturation 99% on room air, temperature of 98.6. General: The patient is a very pleasant 42-year-old male , who is not in acute distress. Alert, awake, oriented x3. HEENT: Head atraumatic, normocephalic. Eyes: Pupils are equal, reactive to light and accommodation. Oropharynx clear. Mucosa moist. Neck: Supple. No JVD, no bruits bilaterally. Cardiovascular: Regular rate and rhythm. No murmurs. Respiratory: Clear to auscultation bilaterally. Abdomen: Soft, nontender. Bowel sounds are present in all 4 quadrants. Extremities: There is no edema. Pulses +2 bilaterally. There is no clubbing or cyanosis. Please note that the patient had cardiac catheterization from right radial axis , which was evaluated by the time of discharge with good radial pulse and no hematoma noted. Please note that this is a short summary of the patient's hospital stay. Please refer to further medical records for details. TIME SPENT: Approximately 45 minutes were spent on preparation of the patient' s discharge. [id number]/CPS #: [id number] MTDD
== END 2018-03-30 11:59 | disposition home or self-care (01) | DRG 174 ==
LOC: ED 04:32 → CHICATH 07:46 → ICU 09:05 → MEDTELE 03-28 13:51
PROVIDERS: ADMIT Internal Medicine Cardiovascular Disease; ATTEND Internal Medicine
PROC: B2111ZZ Fluoroscopy of Multiple Coronary Arteries using Low Osmolar Contrast (ICD-10-PCS; 2018-03-27)
PROC: 4A023N7 Measurement of Cardiac Sampling and Pressure, Left Heart, Percutaneous Approach (ICD-10-PCS; 2018-03-27)
PROC: B2151ZZ Fluoroscopy of Left Heart using Low Osmolar Contrast (ICD-10-PCS; 2018-03-27)
PROC: 02C03ZZ Extirpation of Matter from Coronary Artery, One Artery, Percutaneous Approach (ICD-10-PCS; 2018-03-27)
PROC: 027034Z Dilation of Coronary Artery, One Artery with Drug-eluting Intraluminal Device, Percutaneous Approach (ICD-10-PCS; principal; 2018-03-27 08:00)
DX: I21.19 ST elevation (STEMI) myocardial infarction involving other coronary artery of inferior wall (principal); T82.855A Stenosis of coronary artery stent, initial encounter; I25.10 Atherosclerotic heart disease of native coronary artery without angina pectoris; K21.9 Gastro-esophageal reflux disease without esophagitis; I10 Essential (primary) hypertension; F17.210 Nicotine dependence, cigarettes, uncomplicated; E78.5 Hyperlipidemia, unspecified; I08.1 Rheumatic disorders of both mitral and tricuspid valves; E11.51 Type 2 diabetes mellitus with diabetic peripheral angiopathy without gangrene; F32.9 Major depressive disorder, single episode, unspecified; E66.9 Obesity, unspecified; D72.829 Elevated white blood cell count, unspecified; Y71.2 Prosthetic and other implants, materials and accessory cardiovascular devices associated with adverse incidents; Y92.239 Unspecified place in hospital as the place of occurrence of the external cause; Z82.49 Family history of ischemic heart disease and other diseases of the circulatory system; Z68.34 Body mass index [BMI] 34.0-34.9, adult; Z83.3 Family history of diabetes mellitus; Z95.5 Presence of coronary angioplasty implant and graft; Z79.82 Long term (current) use of aspirin; Z79.02 Long term (current) use of antithrombotics/antiplatelets; Z79.4 Long term (current) use of insulin; Z88.8 Allergy status to other drugs, medicaments and biological substances
CPT/HCPCS: 36415; 71045; 80048; 80053; 80061; 82248; 82550; 82553; 83036; 84484; 85025; 85347; 87641; 93005; 93306; 93458; 99285; 99406; A9270-GY; C1757; C1769; C1876; C1887; C8929; C9600-RC; J0583; J1644; J2250; J2270; J3010

== ENCOUNTER 2018-09-30 07:10 | Emergency (ER) | payer BC, OTHER ==
[2018-09-30 07:28] VITALS: BP 166/98
[2018-09-30] MEDS ORDERED: Tetan/Diph/Pertus SYR(Tdap)* 0.5 ML SYR(BOOSTRIX) use SYR IM ONE (07:34)
--- NOTE | 2018-09-30 07:42 | UC ---
Hand/Wrist HPI - HPI Summary HPI Summary: AT WORK 3AM USING A SLEDGEHAMMER. MISSED THE CHISEL AND STRUCK HIS LEFT HAND. ABRASION, PAIN AND SWELLING MOSTLY OVER 2ND MCP. UNKNOWN DATE OF LAST TETANUS. - History Of Current Complaint Chief Complaint: UCUpperExtremity Stated Complaint: WC HAND INJURY Time Seen by Provider: 09/30/18 07:17 Hx Obtained From: Patient Onset/Duration: Sudden Onset, Lasting Hours, Still Present Severity Initially: Moderate Severity Currently: Moderate Pain Intensity: 5 Pain Scale Used: 0-10 Numeric Character Of Pain: Sharp Aggravating Factor(s): Movement Alleviating Factor(s): Rest Associated Signs And Symptoms: Positive: Swelling, Bruising Related History: Dominant Hand Right - Allergies/Home Medications Allergies/Adverse Reactions: Allergies Allergy/AdvReac Type Severity Reaction Status Date / Time No Known Allergies Allergy Verified 05/15/18 20:27 PMH/Surg Hx/FS Hx/Imm Hx Endocrine History: Diabetes, Dyslipidemia Cardiovascular History: Cardiac Disease, Hypertension Other History Of: Negative For: Anticoagulant Therapy - Surgical History Surgical History: Yes Surgery Procedure, Year, and Place: bone biopsy hip, rotator cuff repair right shoulder. JSAN 2018 REMOVAL OF CALCIFIED CYST ON RIGHT KNEE ARTERY - Family History Known Family History: Positive: Hypertension, Diabetes - Social History Alcohol Use: None Substance Use Type: Marijuana Substance Use Comment - Amount & Last Used: daily Smoking Status (MU): Heavy Every Day Tobacco Smoker Type: Cigarettes Length of Time of Smoking/Using Tobacco: 1 1.2 OOD 30+ YEARS Household Exposure Type: Cigarettes - Immunization History Most Recent Influenza Vaccination: UNKNOWN Most Recent Tetanus Shot: within the last 5 years Most Recent Pneumonia Vaccination: never Review of Systems All Other Systems Reviewed And Are Negative: Yes Constitutional: Positive: Negative Skin: Positive: Bruising, Other - ABRASION Respiratory: Positive: Negative Cardiovascular: Positive: Negative Gastrointestinal: Positive: Negative Musculoskeletal: Positive: Arthralgia, Decreased ROM, Edema Physical Exam Triage Information Reviewed: Yes Appearance: Well-Appearing, No Pain Distress Vital Signs: Initial Vital Signs Temp 97.7 F 09/30/18 07:22 Pulse 111 09/30/18 07:22 Resp 16 09/30/18 07:22 BP 166/98 09/30/18 07:22 Pulse Ox 98 09/30/18 07:22 Vital Signs Reviewed: Yes Eyes: Positive: Conjunctiva Clear ENT: Positive: Hearing grossly normal Neck: Positive: Supple Respiratory: Positive: No respiratory distress, No accessory muscle use Cardiovascular: Positive: Pulses Normal Abdomen Description: Positive: Soft Musculoskeletal: Positive: ROM Limited @ - LEFT 2ND FINGER, Edema @ - LEFT 2ND FINGER MOSTLY OVER MCP, Other: - TTP LEFT HAND 2ND MCP AND METACARPAL, 3RD METACARPAL Neurological: Positive: Alert Psychological: Positive: Age Appropriate Behavior Skin: Positive: Other - SMALL ABRASION LEFT 2ND MCP WITH SURROUNDING BRUISING. Negative: Rashes Diagnostics - Radiology LEFT HAND XRAY Radiology Interpretation Completed By: Radiologist Summary of Radiographic Findings: NO ACUTE OSSEOUS INJURY. Hand/Wrist Course/Dx - Differential Dx/Diagnosis Provider Diagnosis: Contusion of left hand, Abrasion of left hand, Need for Tdap vaccination Discharge - Sign-Out/Discharge Documenting (check all that apply): Patient Departure All imaging exams completed and their final reports reviewed: Yes - Discharge Plan Condition: Stable Disposition: HOME Patient Education Materials: Contusion in Adults (ED), Abrasion (ED) Forms: *Work Release Referrals: Anali Prado [Primary Care Provider] - If Needed Additional Instructions: XRAY TODAY NEGATIVE FOR FRACTURE OR DISLOCATION. YOUR SYMPTOMS SHOULD IMPROVE SIGNIFICANTLY OVER THE NEXT 1-2 WEEKS. IF YOU DO NOT IMPROVE EXPECTED FOLLOW- UP WITH YOUR PCP. YOU MAY BENEFIT FROM REPEAT IMAGING AT THAT TIME. OTC IBUPROFEN OR ALEVE NEEDED FOR DISCOMFORT. REST, ICE, COMPRESS, ELEVATE. YOLANDA WRAP NEEDED FOR SYMPTOM RELIEF. APPLY ANTIBIOTIC OINTMENT AND A BANDAGE OVER YOUR ABRASION. SEEK FOLLOW-UP IF YOU DEVELOP SPREADING REDNESS OF THE SKIN, PURULENT DRAINAGE, FEVER, INCREASED PAIN OR ANY OTHER CONCERNING SYMPTOMS. TETANUS IMMUNIZATION GIVEN (TDAP): You have been given an immunization against tetanus. Please record this in your records. In general, a booster is needed only once every 10 years. The tetanus shot protects against tetanus or "lockjaw," which is a complication of certain wound infections (the tetanus shot cannot protect against the actual infection). The immunization site may become warm and red due to local reaction. If this occurs, apply warm compresses and take aspirin or ibuprofen to reduce inflammation and discomfort. Return for evaluation if the reaction becomes severe. - Billing Disposition and Condition Condition: STABLE Disposition: Home
== END 2018-09-30 08:20 | disposition home or self-care (01) ==
LOC: UCEAST 07:10
DX: S60.222A Contusion of left hand, initial encounter (principal); S60.512A Abrasion of left hand, initial encounter; W22.8XXA Striking against or struck by other objects, initial encounter; Y92.9 Unspecified place or not applicable; Y99.0 Civilian activity done for income or pay; Z23 Encounter for immunization; F17.210 Nicotine dependence, cigarettes, uncomplicated
CPT/HCPCS: 90715; 99212; G0463

== ENCOUNTER 2024-08-15 01:05 | Observation (INO) ==
[2024-08-15 01:39] LABS: ABS Basophils 0.1 10^3/uL (0.0-0.1); ABS Eosinophils 0.2 10^3/uL (0.0-0.5); ABS Lymphocytes 2.8 10^3/uL (1.0-4.8); ABS Neutrophils 6.6 10^3/uL (1.5-7.6); ABS Nucleated RBC 0.01 10^3/ul; Eosinophil % 1.5 %; Hematocrit 43.8 % (38-53); Hemoglobin 14.7 g/dL (13.2-16.3); Lymphocyte % 26.7 %; Mean Corpuscular Hemoglobin 29.6 pg (27-33); Mean Corpuscular Hgb Conc 33.6 g/dL (31-36); Mean Corpuscular Volume 87.9 fL (80-97); Mean Platelet Volume 9.2 fL (7.5-11.2); Platelet Count 182 10^3/uL (150-450); Red Blood Count 4.98 10^6/uL (4.06-5.63); Red Cell Distribution Width 14.4 % (12-17); White Blood Count 10.6 10^3/uL (3.6-10.2)
[2024-08-15 01:41] LABS: INR 0.94 (0.85-1.14)
[2024-08-15 02:55] LABS: Albumin 4.3 g/dL (3.2-5.2); Calcium 9.3 mg/dL (8.6-10.3); Creatinine, Serum 0.88 mg/dL (0.67-1.17); Globulin 2.1 g/dL (2-4); Total Bilirubin 0.5 mg/dL (0.2-1.0); Total Protein 6.4 g/dL (6.4-8.9); eGFR CKD-EPI 105.4 (>60)
[2024-08-15] MEDS: Iodixanol 320 (CONTRAST) 100 ML SDV IV ONE (03:12)
[2024-08-15 03:38] LABS: High Sensitivity Troponin 1 Hr 113 pg/mL (<20)
[2024-08-15] MEDS: nitroGLYCERIN DRIP 25,000 MCG/250 ML BTL IV SCH (05:08)
[2024-08-15] MEDS ORDERED: Dextrose 50% Syringe 50 ml 25 GM/50 ML SYRINGE IV PUSH PRN (05:12)
[2024-08-15 05:16] LABS: Activated Partial Thrombo Time 27.7 seconds (26.0-38.0)
[2024-08-15 05:38] LABS: HDL Cholesterol 38.2 mg/dL
[2024-08-15] MEDS: Heparin 5000 UNITS/ML 1 mL VIAL IV SCH (05:45)
[2024-08-15] MEDS: Heparin DRIP 25,000 UNITS BAG 25,000 UNITS/250 ML BAG IV SCH (05:46)
[2024-08-15] MEDS: Nitroglycerin 0.4 mg/hr PATCH (10 mg) TRANSDERM ONE ×2 (06:38→11:29)
[2024-08-15] MEDS: Sulfur Hexaflouride MICROSPHR 25 MG VIAL IV PRN (10:43)
[2024-08-15 15:30] LABS: High Sensitivity Troponin 1 Hr 2013 pg/mL (<20)
[2024-08-15 17:25] LABS: High Sensitivity Troponin 3 Hr 1735 pg/mL (<20)
[2024-08-15] MEDS: Insulin GLARGINE 100 un/ml 10 ml VIAL SUBCUT SCH (20:09)
[2024-08-16 07:02] LABS: Hematocrit 44.8 % (38-53); Hemoglobin 15.2 g/dL (13.2-16.3); Mean Corpuscular Hemoglobin 29.8 pg (27-33); Mean Corpuscular Hgb Conc 33.9 g/dL (31-36); Mean Corpuscular Volume 87.7 fL (80-97); Platelet Count 168 10^3/uL (150-450); Red Blood Count 5.11 10^6/uL (4.06-5.63); Red Cell Distribution Width 14.3 % (12-17)
[2024-08-16 08:02] LABS: Calcium 8.7 mg/dL (8.6-10.3); Creatinine, Serum 0.66 mg/dL (0.67-1.17); Potassium 3.6 mmol/L (3.5-5.0)
[2024-08-16] MEDS: NS 0.9% 1000 ml BAG 1,000 ML IV SCH (11:11)
[2024-08-16] MEDS: Potassium Chlor 20 meq TAB.ER PO ONE (18:35)
[2024-08-17 06:27] LABS: Hematocrit 43.5 % (38-53); Hemoglobin 14.5 g/dL (13.2-16.3); Mean Corpuscular Hemoglobin 29.4 pg (27-33); Mean Corpuscular Hgb Conc 33.3 g/dL (31-36); Mean Corpuscular Volume 88.1 fL (80-97); Mean Platelet Volume 9.2 fL (7.5-11.2); Platelet Count 165 10^3/uL (150-450); Red Blood Count 4.93 10^6/uL (4.06-5.63); Red Cell Distribution Width 14.1 % (12-17); White Blood Count 9.5 10^3/uL (3.6-10.2)
[2024-08-17 06:45] LABS: Calcium 8.5 mg/dL (8.6-10.3); Creatinine, Serum 0.55 mg/dL (0.67-1.17); Magnesium 1.9 mg/dL (1.9-2.7); Potassium 3.9 mmol/L (3.5-5.0); eGFR CKD-EPI 121.5 (>60)
[2024-08-17] MEDS ORDERED: Heparin 1,000 UNIT/ML 10 ml (10,000 UNITS) CATHLAB/DIALYSIS ONE (08:43)
[2024-08-17] MEDS ORDERED: Midazolam 5 mg/5 ml VIAL 1 mg/ml 5 ml VIAL (5 mg) ONE (08:43)
[2024-08-17] MEDS ORDERED: niCARdipine 0.1MG/ML IVPREMIX 20 MG/200 ML BAG IV ONE ×2 (08:43→09:09)
[2024-08-17] MEDS ORDERED: fentaNYL 100 mcg/2 ml 50 MCG/ML VIAL ONE (08:43)
[2024-08-17] MEDS ORDERED: Heparin 2 UNITS/ML 1000 mls 3,000 ML IV ONE (08:44)
[2024-08-17] MEDS ORDERED: Iohexol 350 (CONTRAST) 200 ML MDV IV ONE (08:44)
[2024-08-17] MEDS ORDERED: nitroGLYCERIN DRIP 25,000 MCG/250 ML BTL ONE (08:44)
[2024-08-17] MEDS ORDERED: Lidocaine 1% MPF 5 ML VIAL ONE (08:44)
[2024-08-17] MEDS ORDERED: Heparin 2 UNITS/ML IVPREMIX 1,000 UNIT/500 ML BAG IV ONE (09:08)
[2024-08-17] MEDS ORDERED: ADENOSINE (DIAGNOSTIC) 3 MG/ML VIAL 90MG/30 ML IVPB ONE (09:31)
[2024-08-17] MEDS: Enoxaparin 100 MG/ML SYR SUBCUT SCH (13:16)
[2024-08-18 06:50] LABS: ABS Basophils 0.1 10^3/uL (0.0-0.1); ABS Eosinophils 0.2 10^3/uL (0.0-0.5); ABS Lymphocytes 2.2 10^3/uL (1.0-4.8); ABS Neutrophils 6.6 10^3/uL (1.5-7.6); Eosinophil % 1.9 %; Hematocrit 41.7 % (38-53); Hemoglobin 14.3 g/dL (13.2-16.3); Lymphocyte % 22.1 %; Mean Corpuscular Hgb Conc 34.3 g/dL (31-36); Mean Corpuscular Volume 87.5 fL (80-97); Mean Platelet Volume 9.2 fL (7.5-11.2); Platelet Count 167 10^3/uL (150-450); Red Blood Count 4.76 10^6/uL (4.06-5.63); Red Cell Distribution Width 14.1 % (12-17); White Blood Count 10.1 10^3/uL (3.6-10.2)
[2024-08-18 07:13] LABS: Calcium 8.7 mg/dL (8.6-10.3); Creatinine, Serum 0.67 mg/dL (0.67-1.17); Magnesium 1.8 mg/dL (1.9-2.7); Potassium 3.9 mmol/L (3.5-5.0); eGFR CKD-EPI 114.5 (>60)
[2024-08-18] MEDS: CMC:DAPAGLIFLOZIN 10 MG TAB (NF) PO SCH (08:45)
[2024-08-18] MEDS: Insulin GLARGINE 100 un/ml 10 ml VIAL SUBCUT ONE (12:41)
[2024-08-18] MEDS: Magnesium Sulfate 2 gm BAG 2 GM/50 ML BAG IVPB ONE (12:41)
[2024-08-18] MEDS: Insulin GLARGINE 100 un/ml 10 ml VIAL SUBCUT SCH (20:09)
[2024-08-18 21:54] VITALS: BP 152/76
== END 2024-08-19 00:26 | disposition short-term general hospital (02) ==
LOC: EDHOLD 01:05 → ED 01:05 → MEDTELE 11:58
PROVIDERS: ADMIT Internal Medicine; ATTEND Hospitalist